=== PATIENT | female | born 1985 | race Caucasian/White ===

== ENCOUNTER 2018-04-28 17:05 | Emergency (ER) | payer MEDICAID ==
[~2018-04-28] VITALS: Ht 172.7 cm; Wt 79.0 kg
[2018-04-28] MEDS ORDERED: KETOROLAC 15MG/ML VIAL IV ONE (18:45)
[2018-04-28] MEDS ORDERED: SODIUM CHLORIDE 0.9% 1,000 ML IV ONE (18:45)
[2018-04-28] MEDS ORDERED: ACETAMINOPHEN 325MG TABLET PO ONE (18:45)
[2018-04-28 18:54] LABS: CLARITY URINE TURBID (CLEAR); COLOR URINE AMBER (YELLOW); KETONES URINE TRACE (NEGATIVE); LEUKOCYTE ESTERASE URINE 3+ (NEGATIVE); NITRITE URINE POSITIVE (NEGATIVE); OCCULT BLOOD URINE 1+ (NEGATIVE); PROTEIN URINE 1+ (NEGATIVE); SPECIFIC GRAVITY URINE 1.021 (1.005-1.030)
[2018-04-28 19:08] LABS: BASOPHILS % 0.3 % (0.0-2.0); EOSINOPHILS % 0.1 % (0.0-5.0); HEMATOCRIT. 36.9 % (36.0-48.0); HEMOGLOBIN. 12.1 g/dL (12.0-16.0); LYMPHOCYTES % 8.8 % (20.0-50.0); MEAN CORPUSCULAR HEMOGLOBIN 26.5 pg (28.0-32.0); MEAN PLATELET VOLUME 8.2 fl (7.4-10.4); MONOCYTES % 6.5 % (2.0-8.0); NEUTROPHILS % 84.3 % (40.0-76.0); PLATELET 287 x1000/uL (130-400); RED BLOOD CELL COUNT 4.55 mill/uL (4.2-5.4); RED CELL DISTRIBUTION WIDTH 14.7 % (11.6-14.6)
[2018-04-28 19:12] LABS: CHLORIDE 101 mEq/L (98-107); INR 1.2; PROTHROMBIN TIME 12.3 sec (9.4-11.6)
[2018-04-28] MEDS ORDERED: CEFTRIAXONE 1 G PREMIX 50 ML IV ONE (19:45)
[2018-04-28 21:14] VITALS: BP 128/65
== END 2018-04-28 21:30 | disposition home or self-care (01) ==
LOC: ER 19:30
DX: N10 Acute pyelonephritis (principal); D72.829 Elevated white blood cell count, unspecified; F17.200 Nicotine dependence, unspecified, uncomplicated
CPT/HCPCS: 36415; 80053; 81003; 81025; 83690; 85025; 85610; 87077; 87086; 87186; 96365; 96375; 99284; J0696; J1885; J7030; Z7610

== ENCOUNTER 2019-05-22 13:06 | Emergency (ER) | payer SELFPAY ==
[~2019-05-22] VITALS: Ht 167.6 cm; Wt 53.0 kg
[2019-05-22 16:15] VITALS: BP 120/65
== END 2019-05-22 16:17 | disposition home or self-care (01) ==
LOC: ER 13:06
DX: S00.86XA Insect bite (nonvenomous) of other part of head, initial encounter (principal); S00.462A Insect bite (nonvenomous) of left ear, initial encounter; S00.461A Insect bite (nonvenomous) of right ear, initial encounter; S40.862A Insect bite (nonvenomous) of left upper arm, initial encounter; S40.861A Insect bite (nonvenomous) of right upper arm, initial encounter; S60.562A Insect bite (nonvenomous) of left hand, initial encounter; S60.561A Insect bite (nonvenomous) of right hand, initial encounter; S90.462A Insect bite (nonvenomous), left great toe, initial encounter; S90.465A Insect bite (nonvenomous), left lesser toe(s), initial encounter; S90.461A Insect bite (nonvenomous), right great toe, initial encounter; S90.862A Insect bite (nonvenomous), left foot, initial encounter; S90.861A Insect bite (nonvenomous), right foot, initial encounter; S90.464A Insect bite (nonvenomous), right lesser toe(s), initial encounter; S30.860A Insect bite (nonvenomous) of lower back and pelvis, initial encounter; S20.469A Insect bite (nonvenomous) of unspecified back wall of thorax, initial encounter; W57.XXXA Bitten or stung by nonvenomous insect and other nonvenomous arthropods, initial encounter; Y93.89 Activity, other specified; Y92.89 Other specified places as the place of occurrence of the external cause
CPT/HCPCS: 99281

== ENCOUNTER 2022-06-21 21:15 | Emergency (ER) | payer MEDICAID ==
[~2022-06-21] VITALS: Ht 172.7 cm; Wt 67.4 kg
[2022-06-21 22:18] VITALS: BP 125/75
[2022-06-22] MEDS ORDERED: CYCL10TA21 MT (01:16)
[2022-06-22] MEDS ORDERED: NAPR-1176 MT (01:16)
== END 2022-06-22 01:38 | disposition home or self-care (01) ==
LOC: ER 21:15
DX: M25.512 Pain in left shoulder (principal); Z96.612 Presence of left artificial shoulder joint; Z87.828 Personal history of other (healed) physical injury and trauma
CPT/HCPCS: 71045; 81025; 99283